=== PATIENT | male | born 1985 | race Caucasian/White ===

== ENCOUNTER → 2017-09-27 11:08 | Outpatient (CLI) | payer BC, SELFPAY ==
[2017-09-27 12:08] LABS: Microalbumin,Random Urine 77.7 mg/L (NO RANGE EST.); Microalbumin:Creatinine Ratio 29.5 mg/g CRE (<30 mg/g CRE)
[2017-09-27 12:15] LABS: ALB/GLOB Ratio 1.2 RATIO (0.9-2.4); AST(SGOT) 44 U/L (15-37); Alanine Aminotransfer ALT/SGPT 82 U/L (16-61); Albumin, Serum 4.4 g/dL (3.2-5.0); Alkaline Phosphatase 45 U/L (45-117); Anion Gap 5 (5-15); BUN 14 mg/dL (7-18); BUN/Creat Ratio 15.9 RATIO (10-20); Calcium,Total 9.2 mg/dL (8.5-10.1); Chloride 104 mmol/L (98-107); Cholesterol 110 mg/dL (200); Creatinine, Serum 0.88 mg/dL (0.70-1.30); EST Glomerular Filtration Rate 106 mL/min (>60); Est Glom Filt Rate - Afr Amer 128 mL/min (>60); Globulin 3.7 g/dL (2.2-4.2); Glucose 161 mg/dL (74-106); High Density Lipoprotein 29 mg/dL; Potassium 3.7 mmol/L (3.5-5.1); Protein, Total 8.1 g/dL (6.4-8.2); Sodium Level 136 mmol/L (136-145); Triglycerides 131 mg/dL; Very Low Density Lipoprotein 26 mg/dL (5-40)
[2017-09-27 12:20] LABS: Hemoglobin A1c 8.5 % (4.2-6.3)
== END ==
PROVIDERS: Family Provider Family Medicine; PCP Family Medicine; Visit Provider Nurse Practitioner
DX: E11.9 Type 2 diabetes mellitus without complications (principal)
CPT/HCPCS: 36415; 80053; 80061; 82043; 82570; 83036

== ENCOUNTER 2017-12-15 11:23 | Emergency (ER) | payer BC, SELFPAY ==
[2017-12-15 11:24] VITALS: BP 134/90; PULSE 84; RESP 16; TEMP 36.8; O2SAT 98; BMI 26.4
--- NOTE | 2017-12-15 11:43 | ED.DCSUM_ITS ---
- ER Visit Summary Date of Service: 12/15/17 Chief Complaint: Right groin pain History of Present Illness: The patient is a 32 M who presents with right groin pain for the past 3 days. The pain is worse with coughing or straining. He has history of known small right inguinal hernia and passes 20-35 kidney stones per year. He is concerned that his hernia enlarged. He denies fever, chills night sweats. He denies any cardiac respiratory symptoms. He denies nausea, vomiting, diarrhea or constipation. He denies any dysuria, frequency, urgency or hematuria. He has not noted a bulge or mass in the right groin area. He denies any penile lesions or discharge. Physical Examination: Vital signs are not normal but not remarkable. HEENT is grossly unremarkable. Abdomen is soft nontender. Testes descended bilateral no testicular epididymal tenderness. He is circumcised with no penile lesions discharge. There is no inguinal lymphadenopathy. With Valsalva maneuver there is a slight bulge and the external ring is slightly enlarged/open compared to the left. This however does not cause him discomfort. Test Results: UA is remarkable for glucosuria and ketones. Patient is a known type II diabetic. Emergency Department Course and Treatment: Since she has a history of both right inguinal hernia and renal calculi will obtain UA since he presently is not having discomfort and he has only a minimal bulge secondary to inguinal hernia. Treatment Plan: Referral to Dr. Elias since she has seen him in the past Disposition: Discharged to home Impression: Right inguinal hernia This note was generated with [employer] dictation software. It may contain incorrect words, spelling, and punctuation that were not noted in review of the chart prior to signing ED Disposition - Plan for ED Patient: Disposition: Home or Assisted Living Chief Complaint: Male Pain/Injury Instructions: ED Hernia Inguinal Referrals: Luis E Don [Primary Care Provider] - Perico Elias MD [STAFF PHYSICIAN] - 5-7 Days Additional Instructions: Take either 4 Advil every 8 hours for the next 3 days or 2 Aleve every 12 hours for the next 3 days for pain.
[2017-12-15 11:55] LABS: Mucous, Urine 0 SEEN /hpf (<or=2+); Red Blood Cells-Urine 0 SEEN /hpf (0-5); Squamous Epithelial Cells - UA 0 SEEN /hpf (0-5); White Blood Cells 0 SEEN /hpf (0-5)
[2017-12-15 11:58] LABS: Color, Urine Yellow (Yellow); Glucose, Dipstick 1000 mg/dl (Normal); Ketone-Dipstick 15 mg/dl (Negative); Leukocyte Esterase-Dipstick Negative /ul (Negative); Nitrite-Dipstick Negative (Negative); Occult Blood-Urine Negative /ul (Negative); Protein-Dipstick 30 mg/dl (Negative); Specific Gravity, Urine 1.015 (1.002-1.030); Urine Bilirubin Dipstick Negative (Negative); Urine Clarity Sl. Cloudy (Clear); Urine Urobilinogen 1 mg/dl (Normal)
[2017-12-15 12:07] LABS: Bacteria RARE /hpf (None Seen)
[2017-12-15 12:56] VITALS: BP 136/80; PULSE 80; RESP 14; O2SAT 99
== END 2017-12-15 13:00 | disposition home or self-care (01) ==
PROVIDERS: Emergency Provider Emergency Medicine; Family Provider Family Medicine; PCP Family Medicine
DX: K40.90 Unilateral inguinal hernia, without obstruction or gangrene, not specified as recurrent (principal); Z87.442 Personal history of urinary calculi; E11.9 Type 2 diabetes mellitus without complications; Z79.899 Other long term (current) drug therapy
CPT/HCPCS: 81001; 99282

== ENCOUNTER → 2018-05-06 10:16 | Outpatient (CLI) | payer BC, SELFPAY ==
[2017-12-28 08:18] VITALS: BMI 26.5
--- NOTE | 2018-05-06 10:19 | RAD_ITS ---
STUDY: X-RAY - ABDOMEN/PELVIS REASON FOR EXAM: Male, 32 years old. Abdominal pain with history of kidney stones TECHNIQUE: Two AP supine views of the abdomen and pelvis. COMPARISON: Prior comparison studies are not available for review at this time. FINDINGS: Normal visualized lung bases. There is an unremarkable bowel gas pattern. There is no demonstrated free abdominal air. There is medial deviation of the inferior renal shadow suggesting horseshoe-type morphology. No suspicious intra-abdominal calcifications. Normal soft tissue structures. Normal visualized osseous structures. RAD/Abdomen Single View IMPRESSION: 1. 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 No suspicious intra-abdominal calcifications. Electronically Signed: Sung Dalton MD at 13:17 EST , Service support ,
== END ==
LOC: RAD.FUTURE 10:18 → RAD 10:24
PROVIDERS: Family Provider Family Medicine; PCP Family Medicine; Referring Provider Nurse Practitioner Adult Health; Visit Provider Nurse Practitioner Adult Health
DX: N20.0 Calculus of kidney (principal)
CPT/HCPCS: 74018

== ENCOUNTER → 2019-01-07 09:58 | Outpatient (CLI) | payer BC, SELFPAY ==
[2018-09-10 19:09] VITALS: BMI 26.6
--- NOTE | 2019-01-07 10:10 | RAD_ITS ---
STUDY: X-RAY - ABDOMEN/PELVIS REASON FOR EXAM: Male, 33 years old. Pain. History of horseshoe kidney with renal stones. TECHNIQUE: Two AP supine views of the abdomen and pelvis. COMPARISON: 05/06/2018. FINDINGS: There is no bowel obstruction. There is a large amount of stool in the colon, consistent with constipation. There are no definite renal stones identified. The visualized osseous structures are within normal limits. RAD/Abdomen Single View IMPRESSION: No bowel obstruction. Constipation. No definite renal stones identified. Electronically Signed: Yves Cottrell, at 18:52 EDT Tel , Service support ,
[2019-01-07 12:05] LABS: Creatinine, Serum 0.91 mg/dL (0.70-1.30); EST Glomerular Filtration Rate 100 mL/min (>60); Est Glom Filt Rate - Afr Amer 121 mL/min (>60)
== END ==
PROVIDERS: Family Provider Family Medicine; PCP Family Medicine; Referring Provider Urology; Visit Provider Urology
DX: N20.0 Calculus of kidney (principal); R10.9 Unspecified abdominal pain
CPT/HCPCS: 36415; 74018; 82565

== ENCOUNTER → 2019-04-21 14:53 | Outpatient (CLI) | payer BC, SELFPAY ==
[2018-09-10 19:09] VITALS: BMI 26.6
--- NOTE | 2019-04-21 14:57 | RAD_ITS ---
STUDY: X-RAY - ABDOMEN/PELVIS REASON FOR EXAM: Male, 33 years old. Renal colic. TECHNIQUE: Single AP view of the abdomen / pelvis. COMPARISON: None. FINDINGS: Normal visualized lung bases. There is a moderate amount of colonic fecal material. There is no demonstrated free abdominal air. The visualized liver, spleen and kidneys are grossly normal in size and morphology. Normal soft tissue structures. Normal visualized osseous structures. RAD/Abdomen Single View IMPRESSION: Moderate fecal debris. No calcification of the kidneys noted. Electronically Signed: Yahaira Horton MD at 0:38 EST , Service support ,
== END ==
PROVIDERS: Referring Provider Urology; Visit Provider Urology
DX: N23 Unspecified renal colic (principal)
CPT/HCPCS: 74018

== ENCOUNTER 2019-07-12 14:57 | Emergency (ER) | payer BC, SELFPAY ==
[2018-09-10 19:09] VITALS: BMI 26.6
[2019-07-12 14:58] VITALS: BP 149/105; PULSE 88; RESP 18; TEMP 36.1; O2SAT 100; BMI 25.9
[2019-07-12 15:24] VITALS: BP 147/91
[2019-07-12] MEDS: Diphth,Pertuss(Acell),Tet Vac 0.5 ML Vial IM (15:25)
--- NOTE | 2019-07-12 15:40 | RAD_ITS ---
STUDY: X-RAY - UNILATERAL RIBS ( RIGHT ) WITH CHEST REASON FOR EXAM: Male, 33 years old. FELL LAST NIGHT, ANTERIOR MID RIGHT RIB PAIN TECHNIQUE - RIBS: PA view(s) of the ribs. TECHNIQUE - CHEST: 4 COMPARISON: None. FINDINGS - RIBS: Normal visualized ribs without a demonstrated fracture. FINDINGS - CHEST: The lungs are clear and expanded. There is no demonstrated pleural abnormality. Normal size heart. Normal mediastinum and jackson. Normal visualized pulmonary arteries. Normal visualized aortic arch and descending thoracic aorta. Normal visualized thoracic spine. Normal visualized ribs, clavicles, and shoulders. There is no demonstrated abnormality of the visualized soft tissue structures of the upper abdomen. RAD/Ribs Uni Min 3V w/PA Chest IMPRESSION: RIBS: No demonstrated rib fracture. CHEST: Nonacute x-ray examination of the chest. Electronically Signed: Sung Dalton MD ([place]) at 16:11 EST , Service support ,
--- NOTE | 2019-07-12 16:25 | ED.DCSUM_ITS ---
History of Present Illness Informant: Patient, Family Occurred: Yesterday Mechanism/Context: Same level fall, Trip, Slip Usually ambulates: Without assistance Location: right ribs Quality of Pain: Aching Current Severity: Moderate Maximum Severity: Moderate Worsened by: cough, movement Relieved by: rest Associated Symptoms: Negative for: Parasthesias, Weakness, Loss of function, Inability to ambulate, Loss of consciousness, Amnesia Narrative: 33-year-old male presents to the emergency department with right rib pain, a chipped tooth and a split lip after mechanical fall. He tripped in a parking lot yesterday afternoon about 24 hours ago. He had no prodromal symptoms. He did hit his head but did not lose consciousness. He has not had a headache he does not feel lightheaded or dizzy he has had no nausea vomiting he has no blurred or double vision he has no loss of vision he has no numbness tingling or weakness or any difficulties with speech or ambulation. No tinnitus. He does not remember when his last tetanus immunization was. He is not short of breath he has no chest pain or hemoptysis. Trees. Tetanus Immunization: Unknown Prior similar symptoms: No Recent Illness/Hospitalization: No <Salvador Zapata - Last Filed: 07/12/19 16:32> <Dustin Flaherty - Last Filed: 07/13/19 00:38> Chief Complaint: Fall Past Medical History Prior records reviewed: Yes Past Medical History: - - Kidney stones Surgical History: - - Removal of multiple kidney stones Lives: With Family Smoking Status: Never smoker <Salvador Zapata - Last Filed: 07/12/19 16:32> <Dustin Flaherty - Last Filed: 07/13/19 00:38> - Allergies and Home Meds Allergies/Adverse Reactions: Allergies No Known Allergies Allergy (Verified 12/28/17 08:19) Primary Care Physician: Care Physician,No Primary [Primary Care Provider] - Review of Systems All systems negative except as indicated General: Denies: Chills, Fever Eyes: Denies: Visual changes - bilaterally, Blurred Vision - bilaterally, Diplopia ENT: Denies: Rhinorrhea, Sore throat Cardiovascular: Denies: Chest pain, Palpitations Respiratory: Denies: Dyspnea, Cough, Sputum, Dyspnea on exertion, Orthopnea, Paroxysmal nocturnal dyspnea Gastrointestinal: Denies: Abdominal pain, Nausea, Vomiting, Diarrhea Genitourinary: Denies: Dysuria, Hematuria, Frequency Musculoskeletal: Denies: Myalgias, Arthralgias, Neck pain, Back pain, Swelling, Extremity Pain Skin: Reports: Abrasions, Wounds. Denies: Rash, Abscess Neurological: Denies: Headache, Weakness, Parasthesia, Numbness <Salvador Zapata - Last Filed: 07/12/19 16:32> Physical Exam Vital Signs/Narrative: Vital Signs Temp Pulse Resp BP Pulse Ox 07/12/19 15:24 147/91 H 07/12/19 14:58 97 F L 88 18 149/105 H 100 Inital Vital Signs reviewed: Yes General: Well nourished, Well developed Head: Normocephalic, Trauma - Patient has an abrasion over his lower and upper lip. He has a small laceration over his upper lip on the inside of his mouth. He has a chipped right upper frontal tooth. There is no fracture. The rest of the tooth is in place. 50% of the distal tooth is missing. There is no other injury noted within his mouth. He has no malocclusion of his jaw. No facial tenderness. No nasal septal hematoma. No hemotympanum bilaterally. No raccoon or velasquez sign. Eyes: Perrl, EOMI ENT: TM's clear, No hemotympanum or drainage Neck: Nontender, Full ROM Cardiovascular: Regular rate, Regular rhythm, No murmurs Respiratory: No distress, CTA bilaterally, Chest tenderness Back: Nontender Skin: Normal color, No rash, Trauma Neurological: Alert, Oriented x3, Cranial nerves II-XII grossly intact, Normal Strength, Normal Sensation, Normal Gait Psychological: Normal affect, Normal Mood <Salvador Zapata - Last Filed: 07/12/19 16:32> Diagnostic/Tx/Re-eval Chest X-Ray - ED: 2 View, Read by ED Physician, Read by Radiologist, No Acute Disease - Medical Decision Making Patient's tetanus was updated. Chest x-ray with a right-sided rib series shows no acute abnormalities. No rib fractures are noted. Discussed with patient he will need follow-up with his dentist regarding his fractured tooth. He has a minor laceration to his upper lip that is more than 24 hours old and therefore we mutually agreed upon foregoing suture secondary to risk of infection. It is not a gaping wound. He is agreeable with plan. He has [place] to take at home for pain. He will alternate anti-inflammatories. He will follow-up with his doctor. Return precautions given. <Salvador Zapata - Last Filed: 07/12/19 16:32> - Medical Decision Making Patient was seen with me. I did a [id number] evaluation with the patient. Patient presents with a fall that occurred yesterday. Patient complains of pain over his right ribs. Patient also chipped his tooth. Patient also complains of a laceration to his upper lip. Patient also complains of abrasions to his left forearm. Patient denies any shortness of breath. Patient denies any nausea or vomiting. Patient denies any visual changes. Vital signs are stable. Patient is afebrile. Patient is in no acute distress. Oral mucosa is pink and moist. There is a 1 cm curvilinear laceration over the lateral aspect of the upper lip on the mucosal surface. There is moderate gapping of the wound margins. There is no active bleeding noted. There is no foreign bodies. There is a class II dental fracture of the right upper lateral incisor. Oral mucosa is pink and moist. Neck is supple. Trachea is midline. There is no JVD. Cranial nerves II through XII are intact. There are no focal motor or sensory deficits. Heart was regular rate and rhythm. Lungs are clear and equal bilaterally. Abdomen is soft and nontender. Skin is warm and dry. There are abrasions over the ulnar aspect of the left forearm. There is no active bleeding. There is no bony crepitance or step-off. There is good range of motion. X-rays of the right ribs were obtained. There is no acute fracture. Since the laceration is 20 hours old, and on the mucosal surface of the lip, I do not feel suturing is necessary at this time. Patient was instructed to follow-up with his primary care physician in 5 to 7 days. Patient was also instructed to follow-up with his dentist to treat his dental fracture. Patient was instructed to take ibuprofen as needed for pain. Patient states he also has [place] to take for severe pain. Patient understood and was agreeable with the plan. All questions were answered. <Dustin Flaherty - Last Filed: 07/13/19 00:38> ED Disposition <Salvador Zapata - Last Filed: 07/12/19 16:32> <Dustin Flaherty - Last Filed: 07/13/19 00:38> - Plan for ED Patient: Disposition: Home or Assisted Living Diagnosis: Contusion of rib on right side, Laceration of lip with delay in treatment, Tooth fracture, Tetanus toxoid vaccination administered at current visit Instructions: Rib Contusion Referrals: Care Physician,No Primary [Primary Care Provider] -
== END 2019-07-12 16:48 | disposition home or self-care (01) ==
PROVIDERS: Emergency Provider Physician Assistant Medical
DX: S02.5XXA Fracture of tooth (traumatic), initial encounter for closed fracture (principal); S01.512A Laceration without foreign body of oral cavity, initial encounter; S50.812A Abrasion of left forearm, initial encounter; S20.211A Contusion of right front wall of thorax, initial encounter; W01.10XA Fall on same level from slipping, tripping and stumbling with subsequent striking against unspecified object, initial encounter; Y93.9 Activity, unspecified; Y92.481 Parking lot as the place of occurrence of the external cause; Z23 Encounter for immunization; Y99.9 Unspecified external cause status; R05 Cough; Z87.442 Personal history of urinary calculi; Z79.899 Other long term (current) drug therapy
CPT/HCPCS: 71101; 90471; 90715; 99282